=== PATIENT | female | born 1990 | race Hispanic/Latino ===

== ENCOUNTER 2016-08-30 12:04 | Day surgery (SDC) | payer SELFPAY ==
[~2016-08-30] VITALS: Ht 152.4 cm; Wt 55.9 kg
[2016-08-30] VITALS (10 sets, daily range): BP systolic 17–120; BP diastolic 63–77; PULSE 70–102; RESP 11–18; O2SAT 97–100
[~2016-08-30 12:04] MED LIST: CeFAZolin 2 Gm/50 mL D5W IV Premix IV ONE; ETON68IM3 SQ; Lactated Ringer's 1,000 ML IV SCH
[2016-08-30] MEDS ORDERED: fentaNYL-PF 50 mCg/mL 2 mL Inj ONE (12:05)
[2016-08-30] MEDS ORDERED: Rocuronium 10 mg/mL 5 mL Inj ONE (12:05)
[2016-08-30] MEDS ORDERED: Propofol 10,000 mCg/mL 20 mL Inj ONE (12:05)
[2016-08-30] MEDS ORDERED: Ondansetron 2 mg/mL 2 mL Inj ONE (12:05)
[2016-08-30] MEDS ORDERED: Neostigmine 1 mg/mL 5 mL Inj ONE (12:05)
[2016-08-30] MEDS ORDERED: Dexamethasone 4 mg/mL Inj ONE (12:05)
[2016-08-30] MEDS ORDERED: Lactated Ringer's 1,000 ML IV ONE (12:15)
[2016-08-30] MEDS ORDERED: CeFAZolin 2 Gm/50 mL D5W Duplex Bag IV ONE (12:29)
[2016-08-30] MEDS ORDERED: Bupivacaine-MPF 0.5% W/EPI 30 mL Inj INFILTRATE ONE (13:47)
--- NOTE | 2016-08-30 14:26 | PCM.HPANE ---
Patient Data Date of Service: Aug 30, 2016 Surgeon Admitting Provider: Attending Provider:Shauna Moreno MD Primary Care Physician:[facility] Other Provider:Yulissa Neely Anesthesia Reason for Visit Cholecystitis Ht/WT & BMI Height (Feet): 5 Height (Inches): 0 Weight (Kilograms): 55.9 Body Mass Index .00 Allergies Coded Allergies: No Known Allergies (Unverified Allergy, Unknown, 08/30/16) Past Anesthesia History Anesthesia History: Denies:: Anesthesia Reactions, Fam Anesthesia Reaction Diabetes History Hx Diabetes?: No Medications Home Meds Incl Beta Cristine: No Discontinued Reported Medications Etonogestrel (Nexplanon)68 Mg [id number] Mg SQ DAILY implanted 08/25/16 History History of ENT Problems?: No Hx of Heart Problems?: No Hx of Respiratory Problem?: No Respiratory History: Denies:: Asthma COPD Emphysema Oxygen Administration Pneumonia Tuberculosis Use of C-PAP Machine Hx Neurologic Problems?: No Neurological History: Denies:: CVA Headaches Multiple Sclerosis Parkinson's Disease Seizures TIA Hx of GI Problems?: Yes Gastrointestinal History: Positive for:: Gall Bladder Disease (current admission problem) Denies:: Gastrointestinal Bleeding Hiatal Hernia Hx of Problems?: No Genitourinary History: Denies:: Kidney Stones Urinary Tract Infection Female Hx: Denies:: Currently Problems with Breasts? Hx Musculoskeletal Problems?: No Hx of Psycho/Social Problems?: No Hx Surgeries?: Yes (nexplanon implant) Hx Any Other Health Problems?: Yes Other History: Positive for:: Hospitalization (childbirth) Denies:: Cancer Thyroid Disease Hx Diabetes: No Hx Alcohol Use: NoHx Substance Use: NoHave You Smoked inLast 12 mo: No Stop/Bang P-Blood Pressure: treated: No B- Body Mass Index > 35 kg/m2: No A- Age over 50: No N- Neck Large Circumference: No G- Gender Male: No BARBARA Risk Assessment: Low Risk, <3 Yes Risk Assessment Category Category 1A: Patient has history of documented sleep apnea, and HAS NOT received any narcotic, sedative or anesthesia administration during this stay. Category 1B: Patient has history of documented sleep apnea, and HAS received any narcotic , sedative or anesthesia administration during this stay Category 2: Patient has SUSPECTED Obstructive Sleep Apnea, and HAS received any narcotic , sedative or anesthesia administration during this stay. Category 3: Patient has SUSPECTED Obstructive Sleep Apnea and HAS NOT received narcotic, sedative or anesthesia administration during this stay. Category 4: Outpatient in Procedural Areas with known sleep apnea or who screen positive for High Risk via the STOP/BANG questionnaire. Exam Exam Vital Signs Vital Signs Date Time Temp Pulse Resp B/P Pulse Ox O2 Delivery O2 Flow Rate FiO2 08/30/16 12:27 36.8 81 17 116/77 100 Room Air General Appearance: Alert, Oriented X3, Cooperative, No Acute Distress HEENT/AIRWAY: MP 2 Lungs: Clear to Auscultation, Normal Air Movement Heart: Exam Unremarkable, Regular Rate/Rhythm, No Murmurs/Rubs/Gallops Meds/Labs/Diagnostics Admission Meds Current Medications Lactated Ringer's (Lr) 1,000 ml @ ud STK-MED ONCE IV Last administered on t 12:15; Start 08/30/16 at 12:15; Stop 08/30/16 at 12:52; Status DC Plan Impression Patient chart reviewed, patient interviewed and anesthestic plan with risks, benefits, and alternatives discussed, and informed consent obtained. NPO Status: 199908/29/2016 ASA Physical Status: ASA1 Normal Healthy Anesthetic Plan: GA Bene/Risks/Altern/Consents: Yes HP Complete Prior to Induction: Yes Vaughn Hernandes MD Aug 30, 2016 14:08
[2016-08-30] MEDS ORDERED: Lactated Ringer's 500 ML IV PRN (14:29)
[2016-08-30] MEDS ORDERED: Lactated Ringer's 1,000 ML IV SCH (14:29)
[2016-08-30] MEDS ORDERED: Labetalol 5 mg/mL 4 mL Inj IV PRN (14:30)
[2016-08-30] MEDS ORDERED: Phenylephrine 10,000 mCg/mL Inj IVPUSH PRN (14:30)
[2016-08-30] MEDS ORDERED: EPHEDrine Sulfate 50 mg/mL Inj IVPUSH PRN (14:30)
[2016-08-30] MEDS ORDERED: Atropine 0.4 mg/mL Inj IVPUSH PRN (14:30)
[2016-08-30] MEDS ORDERED: fentaNYL-PF 50 mCg/mL 2 mL Inj IVPUSH PRN (14:30)
[2016-08-30] MEDS ORDERED: HYDROmorphone 1 mg/mL Inj IVPUSH PRN (14:30)
[2016-08-30] MEDS ORDERED: MetoCLOpramide 5 mg/mL 2 mL Inj IVPUSH PRN (14:30)
[2016-08-30] MEDS ORDERED: Ondansetron 2 mg/mL 2 mL Inj IVPUSH PRN (14:30)
[2016-08-30] MEDS ORDERED: hydrALAZINE 20 mg/mL Inj IVPUSH PRN (14:30)
[2016-08-30] MEDS ORDERED: oxyCODONE-Acetamin 5-325 mg Tablet PO PRN (15:05)
--- NOTE | 2016-08-30 15:12 | PCM.ANEP1 ---
Post Anesthesia Phase 1 PACU Phase 1 Assessment Date of Service: Aug 30, 2016 Vital Signs 36.5 119/67 101 11 100% RA Anesthetic Administered: GA Level of Alertness: Sleepy, easy to arouse SOLIS's with Equal Strength: Yes Pain: No Nausea or Vomiting: No Oxygen Delivery: Room Air Lungs: Clear to Auscultation, Normal Air Movement Vaughn Hernandes MD Aug 30, 2016 15:12
--- NOTE | 2016-08-30 15:12 | PCM.SURGOP ---
Surgical Operative Report Date of Service: Aug 30, 2016 Pre Operative Diagnosis Chronic cholecystitis Post Operative Diagnosis Chronic cholecystitis Procedure: Laparoscopic cholecystectomy Surgeon and Human Resources Operations Manager: Surgeon: Shauna Moreno M.D. Assistants: Abhinav Briseno PA-C A certified surgical first assistant was necessary for retraction and dissection Indication for Procedure This is a 26-year-old female who presented with postprandial right upper quadrant and right lower quadrant abdominal pain. An abdominal ultrasound was performed revealing multiple gallstones and minor thickening of the gallbladder wall. Findings: 1. Mild inflammation of the gallbladder with overlying adhesions. 2. Multiple small mobile gallstones. Procedure Details The patient was brought to the operating room and placed in supine position. General endotracheal anesthesia was smoothly induced. Antibiotics were infused. A warming blanket and SCDs were placed. A foot board was placed. The operative field was prepped and draped in sterile fashion. A pause was performed to confirm the correct patient, procedure, site, and side. A transverse 10 mm incision was made just below the umbilicus. The abdomen was entered under direct vision using a Rashi port. Three additional 5 mm ports were placed in the epigastrium and right upper quadrant. The gallbladder was identified and lifted cephalad. There were small overlying adhesions from the omentum which were taken down with electrocautery. Dissection then proceeded to identify the cystic duct, cystic artery, and to fully expose the cystic plate. Once there were two and only two structures entering the gallbladder, the cystic duct was clipped on the gallbladder and patient side, and the cystic artery was clipped twice on the patient's side and once on the gallbladder side , and both were then divided. The gallbladder was then removed from its bed on the liver with electrocautery. Prior to completely removing the gallbladder, a final look was taken at the stump of the cystic artery and cystic duct, and there was no bleeding or bile leak. The gallbladder was then fully removed from the liver and placed in an EndoCatch bag and removed. The three 5 mm ports were removed under direct vision, the 10 mm mid abdominal port was removed , and a [id number] Vicryl was used to close the fascia. There was no fascial defect at the end of the case. 0.5% Marcaine with epinephrine was infused at all port sites for postoperative analgesia. The skin was closed with subcuticular 4-0 Monocryl. Sterile dressings were placed. The patient was awakened from general anesthesia and taken to the postoperative care unit in good condition. Complications There were no periprocedural complications identified. Surgical Specimen Removed: Yes Specimen sent to Pathology: Yes Surgical Specimen description: Gallbladder Anesthetic Plan: GA Grafts, Implants: None Output, Estimated Blood Loss: 2 (ml) Blood Administration during loya: No Shauna Moreno MD Aug 30, 2016 15:12
--- NOTE | 2016-08-30 16:31 | PCM.ANEP2 ---
Post Anesthesia Evaluation ASA/CMS Post Anesthesia Date of Service: Aug 30, 2016 VS in Patient's Normal Range?: Yes Resp Stable; Airway Patent?: Yes CV Function & Hydration Stable: Yes Mental Status Recovered?: Yes Pain control Satisfactory?: Yes N/V Control Satisfactory?: Yes Vaughn Hernandes MD Aug 30, 2016 16:31
--- NOTE | 2016-09-01 15:05 | PATH ---
SURGICAL PATHOLOGY Attending Physician:Shauna Moreno MD CASE STATUS: Signed Out PATIENT NAME: ZAHEER KENT PID: [id number] : 1990 DATE COLLECTED:08/30/2016 00:00 SPECIMEN: Gallbladder CLINICAL HISTORY: CHRONIC CHOLECYSTITIS 1). GALLBLADDER FINAL DIAGNOSIS: 1.GALLBLADDER: CHOLELITHIASIS. NEGATIVE FOR DYSPLASIA OR MALIGNANCY. ICD10 CODE K80.70 GROSS DESCRIPTION: The specimen is received in one formalin filled container labeled with the patient's name, sublabeled "gallbladder" and consists of an intact 9.0 x 3.0x 3.0 CM gallbladder. The serosa is smooth. The wall is 0.2-0.3 CM in thickness. The mucosa is a light to dark green in color. The lumen contains a yellow friable material and approximately greater than 100 light yellow fragments of calculi which range in size from less than 0.1-0.6 CM in greatest dimension. 5 development representative sections are submitted in one cassette. 08/31/2016 DAC MICRO DESCRIPTION: See diagnosis. ICD-9 CODES: CPT CODES: 1: 24147 Electronically Signed Out Nisa Hooper MD [facility] [address], [place] [address] Technical component performed at [facility], [facility] [address], [address]
== END 2016-08-30 23:59 | disposition home or self-care (01) ==
LOC: SAS 12:04
PROVIDERS: ATTEND Surgery
DX: K80.18 Calculus of gallbladder with other cholecystitis without obstruction (principal)
CPT/HCPCS: 47562; J0690; J1100; J2405; J2710; J7120